=== PATIENT | male | born 1975 | race African-American/Black ===

== ENCOUNTER 2018-01-04 16:21 | Emergency (ER) | payer MEDICAID ==
[~2018-01-04] VITALS: Ht 177.8 cm; Wt 73.5 kg
[~2018-01-04 16:21] MED LIST: MEDROL DOSEPAK4 MG PO; NAPROSYN500 MG PO; NORCO 5-325 TA1 EACH PO; ROBAXIN500 M1 PO
[2018-01-04] MEDS ORDERED: NAPROSYN500 MG PO (16:59)
== END 2018-01-04 17:41 | disposition home or self-care (01) ==
LOC: ED 16:21
DX: S20.229A Contusion of unspecified back wall of thorax, initial encounter (principal); R03.0 Elevated blood-pressure reading, without diagnosis of hypertension; E11.9 Type 2 diabetes mellitus without complications; F17.200 Nicotine dependence, unspecified, uncomplicated; W22.8XXA Striking against or struck by other objects, initial encounter; Y93.89 Activity, other specified; Y92.098 Other place in other non-institutional residence as the place of occurrence of the external cause; Y99.8 Other external cause status

== ENCOUNTER 2018-04-07 19:16 | Emergency (ER) | payer MEDICAID ==
[~2018-04-07] VITALS: Ht 177.8 cm; Wt 77.1 kg
--- NOTE | ~2018-04-07 | EKG ---
[place], [place] ELECTROCARDIOGRAM REPORT NAME: EMMANUEL COPPOLA UNIT #: [id number] ROOM: DOCTOR: EPIPHANY DRAFT REPORT BIRTHDATE: [birth year] [facility] Test Date: 2018-04-07 Test Time: 19:22:10 Pat Name: EMMANUEL COPPOLA Department: Room: Gender: Liquor Rectifier: : 1975 Requested By: RAFY LUCIA Order Number: [id number] Reading MD: Measurements Intervals [place] Rate: 66 P: 75 WA: 184 QRS: 64 QRSD: 90 T: 57 QT: 401 QTc: 421 Interpretive Statements Sinus rhythm Atrial premature complexes No previous ECG available for comparison CM:EKGRPT:ELECTROCARDIOGRAM REPORT [id number] RAFY LEONARD DRAFT REPORT RAFY LUCIA DO
[2018-04-07 19:40] LABS: BASO # 0.1 10*3/uL (0.0-0.1); BASO % 0.6 % (0.0-1.0); EOS % 0.3 % (1.0-4.0); HEMATOCRIT 45.7 % (42.0-52.0); HEMOGLOBIN 14.4 g/dl (14.0-18.0); LYMPH # 2.8 10*3/uL (1.3-4.4); LYMPH % 27.2 % (27.0-41.0); MEAN CELL VOLUME 85.4 fl (80.0-94.0); MEAN CORPUSCULAR HGB 26.9 pg (27.0-31.0); MEAN CORPUSCULAR HGB CONC 31.5 g/dl (33.0-37.0); MEAN PLATELET VOLUME 10.2 fl (9.6-12.3); MONO # 0.4 10*3/uL (0.1-1.0); MONO % 4.2 % (3.0-9.0); NEUT # 6.8 10*3/uL (2.3-7.9); NEUT % 67.4 % (47.0-73.0); PLATELET COUNT AUTOMATED 232 10*3/uL (130-400); RED BLOOD COUNT 5.35 10*6/uL (4.50-5.90); RED CELL DISTRI WIDTH 13.9 % (0-14.5); WHITE BLOOD COUNT 10.1 10*3/uL (4.8-10.8)
[2018-04-07 19:54] LABS: ACT PARTIAL THROMBO TIME 24.5 SECONDS (20.8-31.5)
[2018-04-07 19:57] LABS: ALBUMIN 3.8 gm/dl (3.1-4.5); ALKALINE PHOSPHATASE 72 U/L (45-117); BUN 6 mg/dl (7-24); CHLORIDE 105 mmol/L (98-107); POTASSIUM 3.7 mmol/L (3.5-5.1); SGOT/AST 18 IU/L (3-35); SGPT/ALT 30 U/L (12-78); SODIUM 139 mmol/L (136-145); TOTAL PROTEIN 8.2 gm/dL (6.4-8.2)
[2018-04-07 19:59] LABS: TROPONIN I < 0.015 ng/ml (<0.045)
== END 2018-04-07 20:49 | disposition left against medical advice (07) ==
LOC: ED 19:16
PROVIDERS: Emergency Medicine
DX: R07.9 Chest pain, unspecified (principal); E11.9 Type 2 diabetes mellitus without complications; F17.200 Nicotine dependence, unspecified, uncomplicated

== ENCOUNTER 2018-04-07 21:59 | Inpatient (IN) | payer MEDICAID ==
[~2018-04-07] VITALS: Ht 177.8 cm; Wt 72.6 kg
--- NOTE | ~2018-04-07 | CON ---
[place], [place] REPORT OF CONSULTATION NAME[facility]EL [facility]POLA [id number] UNIT #: [id number] ROOM: 403 DOCTOR: MIGUEL PATHAK MD BIRTHDATE: [birth year] DOS: 04/08/2018 REASON FOR CONSULTATION: Chest pain, history of "weak heart." HISTORY OF PRESENT ILLNESS: The patient is a 43-year-old man who states that he moved to the local area from [place]. While still residing in the [facility], he was found to have a "weak heart." Those details are not yet available to me. He states that he was on medications, but lost his insurance. Since he has been in [place], he has not yet established with a physician. He states that for the last month or two, he has had intermittent sharp pains across his upper chest, which can occur at rest or with exertion. The pain became more constant and severe and therefore he presented to the hospital. He did notice some lightheadedness and palpitations along with dyspnea. In the Emergency Room, a CT angiogram was performed, which showed no evidence for large central pulmonary emboli. There was a moderate-sized loculated simple appearing pleural effusion in the left lung apex extending into the major fissure. He also had evidence for biapical emphysema. Hemoglobin was normal at 14.4, BUN was 5 and creatinine was 0.85. Serial troponin levels were negative. PAST MEDICAL HISTORY: Includes, 1. History of tuberculosis with a cavitary lesion of the lung. 2. Tobacco abuse. 3. Possible cardiomyopathy. FAMILY HISTORY: The patient's father of a heart attack. Both of his parents had diabetes. MEDICATIONS PRIOR TO ADMISSION: The patient is not on any prescribed medications. He does take naproxen on occasion. ALLERGIES: He has no known drug allergies. REVIEW OF SYSTEMS: The patient denies diplopia or loss of vision. Denies syncope, but he has had lightheadedness. He denies fevers, chills, sweats or recent weight change. He denies orthopnea or PND. He denies pedal edema. He denies any history of blood clots in his legs or lungs. He denies nausea or vomiting. He denies cough or hemoptysis. He denies change in bowel or bladder habits. He denies any blood in his stools or urine. He denies any peripheral edema. He denies any skin rashes. The remainder of the review of systems is negative except as noted above. 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 He does smoke cigarettes. Consumption is about pack a day. PHYSICAL EXAMINATION: GENERAL: The patient is a slender man who is awake, alert and oriented. VITAL SIGNS: Pulse is 76 and regular, blood pressure is 88/60, he is afebrile. He weighs 72.6 kg and has a body mass index of 23. [place], [place] REPORT OF CONSULTATION NAME: EMMANUEL COPPOLA UNIT #: [id number] ROOM: 403 DOCTOR: MIGUEL PATHAK MD BIRTHDATE: [birth year] HEENT: Normocephalic and atraumatic. Extraocular muscles are intact. Sclerae are clear. Pupils equal, round and reactive to light. Oral mucosa is moist. Tongue is midline. NECK: Supple. He has no jugular distention. Carotids are full without bruits. There are no neck or supraclavicular masses and no thyromegaly. LUNGS: Respirations are unlabored. His chest is clear to auscultation and percussion. He has no presacral edema or chest wall tenderness. CARDIOVASCULAR: His heart has a regular rhythm without murmurs, rubs or gallops. PMI is not displaced. He has no precordial heave, lift or thrill. ABDOMEN: Soft and normally active without masses, organomegaly or bruits. I could not reproduce his discomfort by palpation of his upper chest or abdomen. EXTREMITIES: Showed no edema. Peripheral pulses were easily palpated in the feet. He had no obvious skin rashes. No palpable cords and no Homans sign. IMPRESSION: 1. Atypical chest pain. The patient shows no signs of acute myocardial injury or enzyme leak. 2. The patient reported history of "weak heart," details not yet available. 3. Cigarette abuse. 4. History of tuberculosis. PLAN: We will check an echocardiogram and pharmacologic stress test for further assessment of his chest discomfort and history of possible cardiomyopathy. He should be prescribed an appropriate risk factor modification regimen. He was advised to quit smoking. Further recommendations depend upon the results of his stress test and echo. I thank the hospitalist physicians for asking our advice regarding his care. MIGUEL PATHAK MD CM:CONSTR:REPORT OF CONSULTATION 1055 04/09/18 0756 interface
--- NOTE | ~2018-04-07 | EKG ---
[place], [place] ELECTROCARDIOGRAM REPORT NAME: EMMANUEL COPPOLA UNIT #: [id number] ROOM: 403 DOCTOR: ELENO DRAFT REPORT BIRTHDATE: [birth year] [facility] Test Date: 2018-04-07 Test Time: 22:11:36 Pat Name: EMMANUEL COPPOLA Department: Room: 403 Gender: M Fly Fishing Guide: Elaine Cristobal : 1975 Requested By: MELISSA BARNETT PA-C Order Number: [id number] Reading MD: Rafael Hussein MD Measurements Intervals [place] Rate: 52 P: 93 NC: 196 QRS: 83 QRSD: 98 T: 60 QT: 420 QTc: 391 Interpretive Statements Sinus rhythm Atrial premature complexes Probable left ventricular hypertrophy No change from earlier ECG this date Electronically Signed On 04-08-2018 8:04:38 PST by Rafael Hussein MD CM:EKGRPT:ELECTROCARDIOGRAM REPORT [id number] MELISSA BARNETT PA-C EPIPHANY DRAFT REPORT MELISSA BARNETT PA-C
[2018-04-07 22:02] VITALS: BP 120/80
[2018-04-07 22:33] LABS: BASO # 0.1 10*3/uL (0.0-0.1); BASO % 0.7 % (0.0-1.0); EOS # 0.1 10*3/uL (0.0-0.4); EOS % 1.4 % (1.0-4.0); HEMATOCRIT 45.9 % (42.0-52.0); HEMOGLOBIN 14.4 g/dl (14.0-18.0); LYMPH # 3.1 10*3/uL (1.3-4.4); LYMPH % 34.5 % (27.0-41.0); MEAN CELL VOLUME 85.5 fl (80.0-94.0); MEAN CORPUSCULAR HGB 26.8 pg (27.0-31.0); MEAN CORPUSCULAR HGB CONC 31.4 g/dl (33.0-37.0); MEAN PLATELET VOLUME 9.9 fl (9.6-12.3); MONO # 0.3 10*3/uL (0.1-1.0); MONO % 3.2 % (3.0-9.0); NEUT # 5.4 10*3/uL (2.3-7.9); PLATELET COUNT AUTOMATED 233 10*3/uL (130-400); RED BLOOD COUNT 5.37 10*6/uL (4.50-5.90); WHITE BLOOD COUNT 9.1 10*3/uL (4.8-10.8)
[2018-04-07 22:50] LABS: ALBUMIN 3.9 gm/dl (3.1-4.5); ALKALINE PHOSPHATASE 68 U/L (45-117); BUN 5 mg/dl (7-24); CHLORIDE 108 mmol/L (98-107); CREATININE 0.85 mg/dL (0.70-1.30); POTASSIUM 4.5 mmol/L (3.5-5.1); SGOT/AST 19 IU/L (3-35); SGPT/ALT 29 U/L (12-78); SODIUM 143 mmol/L (136-145); TOTAL PROTEIN 7.9 gm/dL (6.4-8.2)
[2018-04-07 22:51] LABS: TROPONIN I < 0.015 ng/ml (<0.045)
[2018-04-07 23:23] LABS: BILIRUBIN NEGATIVE (NEGATIVE); BLOOD NEGATIVE (NEGATIVE); CLARITY CLEAR (CLEAR); COLOR YELLOW (YELLOW); GLUCOSE NEGATIVE (NEGATIVE); KETONE NEGATIVE (NEGATIVE); LEUKO ESTERASE NEGATIVE (NEGATIVE); NITRITE NEGATIVE (NEGATIVE); PH 6.5 (5.0-9.0); SPECIFIC GRAVITY <= 1.005 (1.005-1.030); UROBILINOGEN 0.2 E.U./dl (0.2-1.0)
[2018-04-07 23:31] LABS: RBC 0-2 rbc/hpf (0-2)
[2018-04-07 23:32] LABS: URINE AMPHETAMINES < 1000 (1000ng/ml); URINE BARBITURATES < 200 (200ng/ml); URINE BENZODIAZEPINES < 200 (200ng/ml); URINE CANNABINOIDS (THC) < 50 (50ng/ml); URINE COCAINE < 300 (300ng/ml); URINE METHADONE < 300 (300ng/ml); URINE OPIATES < 300 (300ng/ml); URINE PHENCYCLIDINE < 25 (25ng/ml)
[2018-04-07 23:45] VITALS: BP 115/72
--- NOTE | 2018-04-07 23:45 | NUR ---
A 43, admitted to , under the services of NETO Hendrickson DO with a diagnosis of CHEST PAIN. Chief complaint is CHEST PAIN. Patient arrived via bed from ER. Monitor applied. Initial assessment completed. Vital signs taken and recorded. NETO HENDRICKSON DO notified of admission to the unit. Orders received. See assessment for past medical history, medications and allergies. Patient and/or family oriented to unit. [facility] visitation policy reviewed. Clothing/patient valuable form completed. JENNIFER NUGENT
--- NOTE | 2018-04-08 00:30 | NUR ---
PATIENT STATES HE TAKES NO HOME MEDICATIONS.
--- NOTE | 2018-04-08 01:39 | NUR ---
PATIENT TO CT AT THIS TIME
--- NOTE | 2018-04-08 01:45 | NUR ---
PATIENT RETURNED FROM CT AT THIS TIME
--- NOTE | 2018-04-08 03:03 | NUR ---
PATIENT SLEEPING. NO S/S OF DISTRESS NOTED. RESPIRATIONS EASY/REG ON RA.
--- NOTE | 2018-04-08 05:50 | NUR ---
ANSWERING SERVICE WAS NOTIFIED OF DR. PATHAK CONSULT. RESPONSE OF NOTIFICATION WAS OKAY I HAVE YOUR MESSAGE. JENNIFER NUGENT
[2018-04-08 08:00] VITALS: BP 88/60
--- NOTE | 2018-04-08 09:00 | NUR ---
Manager Of Case in to talk to patient. Patient states lives at home with alone. There are few steps in the home. Physician: none [facility]acy[facility] Home health services: none Patient's level of ADLs: INDEPENDENT Patient has working utilities: all working DME: none Follow-up physician's appointment after d/c: will be made by [facility] nurse director upon discharge with doctor of patient's choice Does patient want to access PORTAL?: no Discharge plan discussed with patient patient lives at home, is independent in adls and ambualtion, patient states he will return home when able and denies any home needs. RAINA DICKEY
--- NOTE | 2018-04-08 09:24 | NUR ---
TAKEN TO CARDIAC REHAB FOR STRESS TEST
--- NOTE | 2018-04-08 10:30 | NUR ---
INFORMED CONSENT OBTAINED FOR LEXISCAN NUCLEAR STRESS TEST WITH DR. PATHAK. RESTING EKG NSR WITH PAC'S WITH A RESTING HR OF 68 WITH BP OF 96/74. LUNGS CLEAR WITH SPO2 OF 98% ON ROOM AIR. PT COMPLETED A 1:00 LEXISCAN RECEIVING LEXISCAN 0.4 MG IV OVER 10 SECONDS. HAD NO CHEST PAIN OR ANY EKG CHANGES. HAD C/O "WARM FEELING" THAT WAS RELIEVED IN RECOVERY. HAD A PEAK HR OF 110 WITH BP OF 108/60. LAST RECOVERY HR OF 92 WITH BP OF 112/72. AWAITING SCANNING IN STABLE CONDITION.
[2018-04-08 12:00] VITALS: BP 127/78
--- NOTE | 2018-04-08 14:00 | NUR ---
REQUESTING SOMETHING FOR BACK PAIN. REFUSES TYLENOL AT THIS TIME
[2018-04-08 16:00] VITALS: BP 106/65
--- NOTE | 2018-04-08 17:11 | NUR ---
SPOKE TO DR.A COKER REGARDING PATIENT'S CONCERNS FOR DISCHARGE. STRESS TEST CAME BACK NORMAL. PATIENT STATES HE WAS TOLD HE COULD BE DISCHARGED TODAY LONG STRESS RESULTS WERE OKAY. PER , THEY ARE STILL WATING FOR ECHO TO BE READ BEFORE DISCHARGING PATIENT.
--- NOTE | 2018-04-08 17:38 | NUR ---
PATIENT WANTING TO SIGN OUT AMA. RN EXPLAINED THAT MD IS WAITING ON ECHO TO BE READ BEFORE PUTTING DISCHARGE ORDER IN. PATIENT DOES NOT WANT TO WAIT. NOTIFIED OF THIS. STATES TO ENCOURAGE PT TO STAY UNTIL ECHO RESULTS ARE BACK, BUT IF PT WANTS TO LEAVE HE WILL HAVE TO DO SO AMA UNTIL CARDIO CLEARS PT. PATIENT STILL WANTING TO LEAVE. IV REMOVED. TELE PACK COLLECTED. ALL BELONGINGS GATHERED AND SENT WITH PATIENT. PT AMBULATED OFF FLOOR IN STABLE CONDITION.
== END 2018-04-08 17:38 | disposition left against medical advice (07) | DRG 176 ==
LOC: ED 21:59 → 4E 23:09 → EDHOLD 23:09 → 4E 23:32
PROVIDERS: Physician Assistant; ADMIT Internal Medicine
PROC: 4A02XM4 Measurement of Cardiac Total Activity, External Approach (ICD-10-PCS; principal; 2018-04-08)
PROC: 3E073KZ Introduction of Other Diagnostic Substance into Coronary Artery, Percutaneous Approach (ICD-10-PCS; 2018-04-08)
DX: I26.99 Other pulmonary embolism without acute cor pulmonale (principal); J91.8 Pleural effusion in other conditions classified elsewhere; R00.1 Bradycardia, unspecified; F32.9 Major depressive disorder, single episode, unspecified; F17.210 Nicotine dependence, cigarettes, uncomplicated; J43.9 Emphysema, unspecified; Z53.21 Procedure and treatment not carried out due to patient leaving prior to being seen by health care provider; F41.9 Anxiety disorder, unspecified; Z71.6 Tobacco abuse counseling; Z86.11 Personal history of tuberculosis; Z82.49 Family history of ischemic heart disease and other diseases of the circulatory system; Z83.3 Family history of diabetes mellitus

== ENCOUNTER → 2018-07-15 | Outpatient (CLI) | payer OTHER ==
[~2018-07-15] MED LIST changes: +ACETAMINOPHEN500 M4 PO; +CYCLOBENZAPRINE10 MG PO; +PREDNISONE50 MG PO
[2018-07-16 08:09] LABS: ALPHA-1-ANTITRYPSIN, SERUM 121 mg/dL (90-200)
== END | disposition home or self-care (01) ==
LOC: LAB 08:05
PROVIDERS: Internal Medicine Critical Care Medicine
DX: J44.9 Chronic obstructive pulmonary disease, unspecified (principal)

== ENCOUNTER 2019-01-29 02:17 | Emergency (ER) | payer OTHER ==
[~2019-01-29] VITALS: Ht 175.2 cm; Wt 72.6 kg
[2019-01-29] MEDS ORDERED: IBU800 M1 PO (02:32)
== END 2019-01-29 02:31 | disposition home or self-care (01) ==
LOC: ED 02:17
DX: M41.24 Other idiopathic scoliosis, thoracic region (principal); M54.6 Pain in thoracic spine; F10.920 Alcohol use, unspecified with intoxication, uncomplicated; J44.9 Chronic obstructive pulmonary disease, unspecified; F17.210 Nicotine dependence, cigarettes, uncomplicated; Z79.899 Other long term (current) drug therapy

== ENCOUNTER 2019-04-05 13:38 | Emergency (ER) | payer OTHER ==
[~2019-04-05] VITALS: Ht 185.4 cm; Wt 74.8 kg
[~2019-04-05 13:38] MED LIST changes: +IBU800 M1 PO
[2019-04-05] MEDS ORDERED: AMOXICILLIN500 M2 PO (16:27)
== END 2019-04-05 16:33 | disposition home or self-care (01) ==
LOC: ED 13:38 → EDBD 13:41 → ED 16:33
DX: J06.9 Acute upper respiratory infection, unspecified (principal); J44.9 Chronic obstructive pulmonary disease, unspecified; F17.210 Nicotine dependence, cigarettes, uncomplicated

== ENCOUNTER 2019-07-01 17:10 | Emergency (ER) | payer OTHER ==
[~2019-07-01 17:10] MED LIST changes: +AMOXICILLIN500 M2 PO
== END 2019-07-01 18:31 | disposition left against medical advice (07) ==
LOC: ED 17:10
DX: M54.6 Pain in thoracic spine (principal); Z79.899 Other long term (current) drug therapy

== ENCOUNTER 2019-10-04 22:31 | Emergency (ER) | payer OTHER ==
[~2019-10-04] VITALS: Ht 182.8 cm; Wt 72.6 kg
== END 2019-10-04 22:56 | disposition left against medical advice (07) ==
LOC: ED 22:31
DX: Z04.71 Encounter for examination and observation following alleged adult physical abuse (principal); F17.200 Nicotine dependence, unspecified, uncomplicated; J44.9 Chronic obstructive pulmonary disease, unspecified; Z53.20 Procedure and treatment not carried out because of patient's decision for unspecified reasons

== ENCOUNTER 2019-10-05 19:32 | Emergency (ER) | payer OTHER ==
[~2019-10-05] VITALS: Ht 182.8 cm; Wt 70.3 kg
== END 2019-10-06 00:11 | disposition left against medical advice (07) ==
LOC: ED 19:32
DX: S02.40FA Zygomatic fracture, left side, initial encounter for closed fracture (principal); S02.32XA Fracture of orbital floor, left side, initial encounter for closed fracture; S02.842A Fracture of lateral orbital wall, left side, initial encounter for closed fracture; J44.9 Chronic obstructive pulmonary disease, unspecified; F17.210 Nicotine dependence, cigarettes, uncomplicated; Y08.89XA Assault by other specified means, initial encounter; Y93.89 Activity, other specified; Y92.89 Other specified places as the place of occurrence of the external cause; Y99.8 Other external cause status

== ENCOUNTER → 2019-10-05 | Emergency (ER) | payer OTHER | LOC: ED 07:27 | DX: Z04.71 Encounter for examination and observation following alleged adult physical abuse (principal); Z53.21 Procedure and treatment not carried out due to patient leaving prior to being seen by health care provider ==

== ENCOUNTER → 2020-04-10 | Outpatient (CLI) | payer OTHER | END | disposition home or self-care (01) | LOC: COVID19 09:04 | PROVIDERS: ATTEND Internal Medicine | DX: Z20.822 Contact with and (suspected) exposure to COVID-19 (principal); R06.02 Shortness of breath ==